=== PATIENT | female | born 1980 | race Caucasian/White ===

== ENCOUNTER 2021-08-02 10:47 | Outpatient (CLI) | payer OTHER, SELFPAY ==
--- NOTE | ~2021-08-02 | MM_ITS ---
EXAMINATION: MM screening sakina BI w ousmane HISTORY: Screening TECHNIQUE: Craniocaudal and mediolateral oblique 3-D tomosynthesis images were obtained and synthetic 2-D images were generated. CAD analysis was submitted and interpreted. COMPARISON: No prior mammogram is available for comparison at this institution. BREAST PARENCHYMAL COMPOSITION: There are scattered areas of fibroglandular density. FINDINGS: There is no evidence of suspicious mass, calcification, or architectural distortion to sugg est malignancy in either breast. There has been no suspicious interval change. IMPRESSION: 1. No mammographic evidence of malignancy. 2. Recommend routine screening mammography in one year. BI-RADS Category 1: Negative Reviewed, dictated and finalized at location A.
== END 2021-08-02 10:48 | disposition home or self-care (01) ==
LOC: CHSIMG 10:48
PROVIDERS: PCP Physician Assistant; Visit Provider Obstetrics & Gynecology
DX: Z12.31 Encounter for screening mammogram for malignant neoplasm of breast (principal)
CPT/HCPCS: 77063; 77067

== ENCOUNTER 2025-01-27 09:27 | Outpatient (CLI) | payer OTHER, SELFPAY ==
--- NOTE | ~2025-01-27 | MM_ITS ---
EXAMINATION: MM screening sakina BI w ousmane HISTORY: Screening mammogram TECHNIQUE: Craniocaudal and mediolateral oblique 3-D tomosynthesis images were obtained and synthetic 2-D images were generated. CAD analysis was submitted and interpreted. COMPARISON: 04/01/2021 BREAST PARENCHYMAL COMPOSITION:Not Dense. There are scattered areas of fibroglandular density. FINDINGS: No suspicious mass, calcification, or architectural distortion are identified in either marie ast to suggest malignancy. There has been no suspicious interval change. IMPRESSION: No mammographic evidence of malignancy. Recommend routine screening mammography in one year. BI-RADS Category 1: Negative Reviewed, dictated and finalized at location . [employer]
--- OUTSIDE RECORDS SUMMARY | 2025-01-27 10:23 | XMS_ITS ---
Care Plan - [facility] Created on: January 27, 2025 RONNIE RAIES L : 1980 Sex: Female Author Organization [facility] Address [address] [place] [address] Phone Care Team Providers Care Sfdc Consultant Name Role Phone Unavailable Unavailable Unavailable
--- OUTSIDE RECORDS SUMMARY | 2025-01-27 10:23 | XMS_ITS | Clinical Summary ---
Author Organization [facility] Address [address] [place] [address] Phone Care Team Providers Care Temple Meat Cutter Name Role Phone Unavailable Unavailable Unavailable Reason for Visit and Chief Complaint NO SHOW Problems Includes: Problems addressed during this encounter and other active Problems All Visits Onset Date Resolved Date Provider Condition S tatus Risk: Tobacco Use 07/02/2018 GIULIANO DE LA O NP -BC Active Last Documented On 8 10:48AM ; [facility] Plan of Treatment No Plan of Treatment Recorded Assessments Includes: Assessments from this encounter No Assessments Recorded Medical Equipment - Implanted Devices Includes: Current Devices No Medical Equipment Recorded Medications Includes: Medications discussed during this encounter and other current Medications Current Medications (continue as prescribed) Multiple Vitamins/Womens Oral Tablet 06/25/2017 Prov ider: Diagnosis: Last Documented On 7 11:24AM By CRUZ LEAHY ; [facility] PX Iron 200 (65 Fe) MG Tablet 06/08/2015 Provider: Diagnosis: Last Documented On 5 11:07AM By CRUZ LEAHY ; [facility] Medications Administered Includes: Administered Medications from this encounter No Administered Medications Recorded Results Includes: Results discussed during this encounter No Results Recorded For Specified Dates History of Present Illness Includes: History of Present Illness from this encounter No History of Present Illness Recorded Social History No Social History Recorded - Smoking Status Unknown Medical History Includes: Medical History addressed during this encounter No Medical History Recorded Family History Includes: Family History addressed during this encounter No Family History Recorded Review of Systems Includes: Review of Systems from this encounter No Review of Systems Recorded Mental Status Includes: Mental Status from this encounter No Mental Status Recorded Functional Status Includes: Functional Status from this encounter No Functional Status Recorded Physical Exam Includes: Physical Exam from this encounter No Physical Exam Recorded Allergies Includes: Active Allergies No Known Allergies Encounters Encounter Provider Location Date Check-In Time Check-Out Time Diagnosis NO SHOW MICHAELA MAC MD [facility] EMT 12/08/2018 10:53AM 11:59PM Clinical Notes Includes: Clinical Notes from this encounter No Clinical Notes Recorded
--- OUTSIDE RECORDS SUMMARY | 2025-01-27 10:23 | XMS_ITS | Clinical Summary ---
Author Organization [facility] Address [address] [place] [address] Phone Care Team Providers Care Rough Rib Grader Name Role Phone Unavailable Unavailable Unavailable Reason for Visit and Chief Complaint NO SHOW Problems Includes: Problems addressed during this encounter and other active Problems All Visits Onset Date Resolved Date Provider Condition S tatus Risk: Tobacco Use 07/02/2018 GIULIANO DE LA O NP -BC Active Last Documented On 8 10:48AM ; [facility] Plan of Treatment No Plan of Treatment Recorded Assessments Includes: Assessments from this encounter No Assessments Recorded Medical Equipment - Implanted Devices Includes: Current Devices No Medical Equipment Recorded Medications Includes: Medications discussed during this encounter and other current Medications Current Medications (continue as prescribed) Multiple Vitamins/Womens Oral Tablet 06/25/2017 Prov ider: Diagnosis: Last Documented On 7 11:24AM By CRUZ LEAHY ; [facility] PX Iron 200 (65 Fe) MG Tablet 06/08/2015 Provider: Diagnosis: Last Documented On 5 11:07AM By CRUZ LEAHY ; [facility] Medications Administered Includes: Administered Medications from this [...] Allergies Includes: Active Allergies No Known Allergies Clinical Notes Includes: Clinical Notes from this encounter No Clinical Notes Recorded
--- OUTSIDE RECORDS SUMMARY | 2025-01-27 10:24 | XMS_ITS | Clinical Summary ---
Author Organization [facility] Address [address] [place] [address] Phone Care Team Providers Care Wind Turbine Performance Engineer Name Role Phone Unavailable Unavailable Unavailable Reason for Visit and Chief Complaint PELVIC W/TVT Problems Includes: Problems addressed during this encounter and other active Problems All Visits Onset Date Resolved Date Provider Condition S tatus Risk: Tobacco Use 07/02/2018 GIULIANO DE LA O NP -BC Active Last Documented On 8 10:48AM ; [facility] Plan of Treatment No Plan of Treatment Recorded Assessments Includes: Assessments from this encounter No Assessments Recorded Medical Equipment - Implanted Devices Includes: Current Devices No Medical Equipment Recorded Medications Includes: Medications discussed during this encounter and other current Medications Current Medications (continue as prescribed) Multiple Vitamins/Womens Oral Tablet 06/25/2017 Prov ider: Diagnosis: Last Documented On 7 11:24AM By CRUZ LEAHY ; [facility] PX Iron 200 (65 Fe) MG Tablet 06/08/2015 Provider: Diagnosis: Last Documented On 5 11:07AM By CRUZ LEAHY ; [facility] Medications Administered Includes: Administered Medications from [...]
--- OUTSIDE RECORDS SUMMARY | 2025-01-27 10:24 | XMS_ITS | Data Portability ---
Author Organization [facility] Address [address] [place] [address] Care Team Providers Care Char House Supervisor Name Role Phone QUINTON FRIEDMAN Primary Care Provider Assessment No assessment recorded. Plan of Treatment Reminders Order Date Submit Date Provider Last Modified By Organization Details Last Modified Time Details Appointments ANY 15 2024 09:30A Danna Friedman PA-C Not available Not available Not available Lab cytolo gy report , thin prep, smear or scrapi ng, cervic al or vagina l 2024 025 [facility], [address], [address], [place], [address], 01/20/2025 17:20:06 CBC 2024 025 [facility], [address], [address], [place], [address], 12/26/2024 11:11:02 CMP, serum or plasma 2024 025 [facility], [address] [facility] [address], [address], [place], [address], 12/26/2024 11:11:00 lipid panel, serum 2024 025 [facility], [address] [facility] [address], [address], [place], [address], 12/26/2024 11:10:59 HbA1c (hemog lobin A1c), blood 2024 025 [facility] In-Office Order, Internal Use Only DO Not Attach Compendium DO Not Attach Compendium, Do Not Delete/merge, [id number] 12/25/2024 12:22:09 noninv asive colore ctal cancer DNA + occult blood screen ing, QL, stool 2024 025 [facility] [employer] (Cologuard Orders Only), [address], [address], [place], [address], 12/25/2024 11:43:12 CBC 2021 022 [facility], [address] [place] [address], [address], [place], [address], 04/24/2022 09:13:54 CMP, serum or plasma 2021 022 [facility], [address] [place] [address], [address], [place], [address], 04/24/2022 09:13:53 lipid panel, serum 2021 022 [facility], [address] [place] [address], [address], [place], [address], 04/24/2022 09:13:55 HbA1c (hemog lobin A1c), blood 2021 022 [facility] In-Office Order, Internal Use Only DO Not Attach Compendium DO Not Attach Compendium, Do Not Delete/merge, [id number] 04/23/2022 11:03:56 urinal ysis, dipsti ck 2018 019 [facility] Order, Internal Use Only DO Not Attach Compendium DO Not Attach Compendium, Do Not Delete/merge, [id number] 07/10/2019 13:44:13 Referral None record ed. Procedures None record ed. Surgeries None record ed. Imaging MAMMO, screen ing, bilate ral - screen ing mammog keila. Last mammog keila 08/02/20 21 2024 025 [facility], [address] [place], [address], 01/27/2025 11:01:31 Medication Orders Cipro 500 mg tablet 2018 019 [facility], [address] [place] [address], [address], 04/23/2022 10:30:52 Patient TargetsNo targets recorded. Patient Instructions Encounter Date Encounter Id Patient Instructions Last Modified By Organization Details Last Modified Time 07/10/2019 [id number] get AZO too jocelyn Not available 08/2019 11:05:18 01/18/2025 [id number] Quitting Tobacco : Care Instructions Not available 01/18/2025 11:49:41 Your women's health annual exam today was unremarkable. Continue to practice breast self awareness like we discussed. Come back to the office with any breast changes, nipple discharge, change to your menstrual cycle, or with complaints of unusual odorous discharge. Otherwise, come back in 1 year for your next well woman annual exam. Do NOT douche as it disturbs the natural balance of bacteria in the vagina and can cause infection. Avoid scented soaps or lotions. Use a basic unscented soap for only the outer skin around your vagina. Wear cotton underwear, avoid thongs, avoid spandex, leggings and wear panty liners daily. You can try probiotics. Use a condom with EVERY sexual encounter to minimize your risk for sexually transmitted infection and unplanned . Lubrication can help make penetrative intercourse more comfortable. There are 3 types of lube: Water-based (examples are KY jelly, Astroglide): inexpensive, can buy over the counter, often gets sticky and needs to be reapplied. Oil-based (examples olive oil, coconut oil): inexpensive, can stain sheets, do not use with condoms. Silicone-based (examples Uber Lube, Pjur): more expensive, a little goes a long way, does not have scents or stain sheets. 1. Start taking a multivitamin, calcium and vitamin D3 supplements daily to keep your bones healthy. 2. Exercise and keep a healthy diet to minimize risk for stroke, heart attack and osteoporosis. 3. Use a once a day vaginal moisturizer (like Replens) if you have bothersome dryness. If dryness continues to be a problem, make an appointment to see us to discuss other options. [email or web address] Not available 01/18/2025 11:50:00 Reason for Referral None Reported. Results Created Date Observation Date Name Description Value Unit Range Abnormal Flag Note LastModifiedBy Organization Detail LastModifiedTime 07/10/2007/10/2019 urina lysis , dipst ick Leukocytes Small Not Available In-Offi ce Order Internal Use Only DO Not Attach Compendium DO Not Attach Compendium, Do Not Delete/merge, [id number] 07/10/2019 10:45:18 07/10/2007/10/2019 urina lysis , dipst ick Nitrite negati ve Not Available In-Office Order Internal Use Only DO Not Attach Compendium DO Not Attach Compendium, Do Not Delete/merge, 07/10/2019 10:45:18 07/10/2007/10/2019 urina lysis , dipst ick Urobilinogen .2 Not Available In-Of fice Order Internal Use Only DO Not Attach Compendium DO Not Attach Compendium, Do Not Delete/merge, 07/10/2019 10:45:18 07/10/2007/10/2019 urina lysis , dipst ick Protein Negati ve Not Available In-Office Order Internal Use Only DO Not Attach Compendium DO Not Attach Compendium, Do Not Delete/merge, [id number] 07/10/2019 10:45:18 07/10/2007/10/2019 urina lysis , dipst ick pH 7.0 Not Available In-Office Order Internal Use Only DO Not Attach Compendium DO Not Attach Compendium, Do Not Delete/merge, 07/10/2019 10:45:18 07/10/2007/10/2019 urina lysis , dipst ick Blood Large Not Available In-Office Order Internal Use Only DO Not Attach Compendium DO Not Attach Compendium, Do Not Delete/merge, 07/10/2019 10:45:18 07/10/20 19 07/10/2019 urina lysis , dipst ick Specific [place] 1.005 Not Available In-Off ice Order Internal Use Only DO Not Attach Compendium DO Not Attach Compendium, Do Not Delete/merge, 07/10/2019 10:45:18 07/10/20 19 07/10/2019 urina lysis , dipst ick Ketone Negati ve Not Available In-Office Order Internal Use Only DO Not Attach Compendium DO Not Attach Compendium, Do Not Delete/merge, 07/10/2019 10:45:18 07/10/20 19 07/10/2019 urina lysis , dipst ick Bilirubin Negati ve Not Available In-Office Order Internal Use Only DO Not Attach Compendium DO Not Attach Compendium, Do Not Delete/merge, [id number] 07/10/2019 10:45:18 07/10/20 19 07/10/2019 urina lysis , dipst ick Glucose Negati ve Not Available In-Office Order Internal Use Only DO Not Attach Compendium DO Not Attach Compendium, Do Not Delete/merge, [id number] 07/10/2019 10:45:18 07/10/20 19 07/10/2019 urina lysis , dipst ick Appearance Clear Not Available In-Offi ce Order Internal Use Only DO Not Attach Compendium DO Not Attach Compendium, Do Not Delete/merge, [id number] 07/10/2019 10:45:18 07/10/20 19 07/10/2019 urina lysis , dipst ick Color Pale Yellow Not Available In-Office Order Internal Use Only DO Not Attach Compendium DO Not Attach Compendium, Do Not Delete/merge, [id number] 07/10/2019 10:45:18 04/23/20 22 04/24/2022 COMP. METAB OLIC PANEL (14) glucose 80 mg/dL 65-99 Not Available [facility] ([facility]) [address], [place], [address], 04/24/2022 09:13:53 04/23/20 22 04/24/2022 COMP. METAB OLIC PANEL (14) BUN 13 mg/dL 6-24 Not Available [facility] ([facility]) [address] [place], [address], 04/24/2022 09:13:53 04/23/20 22 04/24/2022 COMP. METAB OLIC PANEL (14) creatinine 0.70 mg/dL 0.57-1 .00 Not Available [facility] ([facility]) [address] [place], [address], 04/24/2022 09:13:53 04/23/20 22 04/24/2022 COMP. METAB OLIC PANEL (14) eGFR 111 mL/mi n/1.7 3 >59 Not Available [facility] ([facility]) [address] [place], [address], 04/24/2022 09:13:53 04/23/20 22 04/24/2022 COMP. METAB OLIC PANEL (14) BUN/creatini ne ratio 19 9-23 Not Available [facility] ([facility]) [address] [place], [address], 04/24/2022 09:13:53 04/23/20 22 04/24/2022 COMP. METAB OLIC PANEL (14) sodium 141 mmol/ L 134-14 4 Not Available [facility] ([facility]) [address] [place], [address], 04/24/2022 09:13:53 04/23/20 22 04/24/2022 COMP. METAB OLIC PANEL (14) potassium 4.5 mmol/ L 3.5-5. 2 Not Available [facility] ([facility]) [address] [place], [address], 04/24/2022 09:13:53 04/23/20 22 04/24/2022 COMP. METAB OLIC PANEL (14) chloride 105 mmol/ L 96-106 Not Available [facility] ([place] [facility]) [address] [place], [address], 04/24/2022 09:13:53 04/23/20 22 04/24/2022 COMP. METAB OLIC PANEL (14) carbon dioxide, total 21 mmol/ L 20- Not Available [facility] ([place] [facility]) [address], [place], [address], 04/24/2022 09:13:53 04/23/20 22 04/24/2022 COMP. METAB OLIC PANEL (14) calcium 9.8 mg/dL 8.7-10 .2 Not Available [facility] ([place] [facility]) [address], [place], [address], 04/24/2022 09:13:53 04/23/20 22 04/24/2022 COMP. METAB OLIC PANEL (14) protein, total 7.1 g/dL 6.0-8. 5 Not Available [facility] ([facility]) [address], [place], [address], 04/24/2022 09:13:53 04/23/20 22 04/24/2022 COMP. METAB OLIC PANEL (14) albumin 4.7 g/dL 3.8-4. 8 Not Available [facility] ([facility]) [address], [place], [address], 04/24/2022 09:13:53 04/23/20 22 04/24/2022 COMP. METAB OLIC PANEL (14) globulin, total 2.4 g/dL 1.5-4. 5 Not Available [facility] ([place] [facility]) [address] [place], [address], 04/24/2022 09:13:53 04/23/20 22 04/24/2022 COMP. METAB OLIC PANEL (14) A/G ratio 2.0 1.2-2. 2 Not Available [facility] ([place] [facility]) [address] [place], [address], 04/24/2022 09:13:53 04/23/20 22 04/24/2022 COMP. METAB OLIC PANEL (14) bilirubin, total 0.8 mg/dL 0.0-1. 2 Not Available [facility] ([facility]) [address], [place], [address], 04/24/2022 09:13:53 04/23/20 22 04/24/2022 COMP. METAB OLIC PANEL (14) alkaline phosphatase 53 IU/L 44-121 Not Available [facility] ([facility]) [address], [place], [address], 04/24/2022 09:13:53 04/23/20 22 04/24/2022 COMP. METAB OLIC PANEL (14) AST (SGOT) 14 IU/L 0-40 Not Available [facility] ([facility]) [address], [place], [address], 04/24/2022 09:13:53 04/23/20 22 04/24/2022 COMP. METAB OLIC PANEL (14) ALT (SGPT) 14 IU/L 0-32 Not Available [facility] ([facility]) [address], [place], [address], 04/24/2022 09:13:53 04/23/20 22 04/24/2022 CBC, PLATE LET, NO DIFFE RENTI AL WBC 9.8 x10e3 /uL 3.4-10 .8 Not Available [facility] ([facility]) [address] [place], [address], 04/24/2022 09:13:54 04/23/20 22 04/24/2022 CBC, PLATE LET, NO DIFFE RENTI AL RBC 4.94 x10e6 /uL 3.77-5 .28 Not Available [facility] ([facility]) [address], [place], [address], 04/24/2022 09:13:54 04/23/20 04/24/2022 CBC, PLATE LET, NO DIFFE RENTI AL hemoglobin 14.7 g/dL 11.1-1 5.9 Not Available [facility] ([facility]) [address] [place], [address], 04/24/2022 09:13:54 04/23/20 22 04/24/2022 CBC, PLATE LET, NO DIFFE RENTI AL hematocrit 45.4 % 34.0-4 6.6 Not Available [facility] ([facility]) [address] [place], [address], 04/24/2022 09:13:54 04/23/2004/24/2022 CBC, PLATE LET, NO DIFFE RENTI AL MCV 92 fL 79-97 Not Available [facility] ([facility]) [address] [place], [address], 04/24/2022 09:13:54 04/23/2004/24/2022 CBC, PLATE LET, NO DIFFE RENTI AL MCH 29.8 pg 26.6-3 3.0 Not Available [facility] ([facility]) [address] [place], [address], 04/24/2022 09:13:54 04/23/2004/24/2022 CBC, PLATE LET, NO DIFFE RENTI AL MCHC 32.4 g/dL 31.5-3 5.7 Not Available [facility] ([facility]) [address] [place], [address], 04/24/2022 09:13:54 04/23/2004/24/2022 CBC, PLATE LET, NO DIFFE RENTI AL RDW 12.6 % 11.7-1 5.4 Not Available [facility] ([facility]) [address] [place], [address], 04/24/2022 09:13:54 04/23/2004/24/2022 CBC, PLATE LET, NO DIFFE RENTI AL platelets 377 x10e3 /uL 150-45 0 Not Available [facility] ([facility]) [address], [place], [address], 04/24/2022 09:13:54 04/23/20 22 04/24/2022 CBC, PLATE LET, NO DIFFE RENTI AL NRBC FOOD OR BAGGAGE HANDLING RAMPMAN Not Available [facility] ([facility]) [address], [place], [address], 04/24/2022 09:13:54 04/23/20 22 04/24/2022 LIPID PANEL cholesterol, total 184 mg/dL 100-19 9 Not Available [facility] ([facility]) [address] [place], [address], 04/24/2022 09:13:55 04/23/20 22 04/24/2022 LIPID PANEL triglyceride s 95 mg/dL 0-149 Not Available [facility] ([facility]) [address] [place], [address], 04/24/2022 09:13:55 04/23/20 22 04/24/2022 LIPID PANEL HDL cholesterol 44 mg/dL >39 Not Available [facility] ([facility]) [address] [place], [address], 04/24/2022 09:13:55 04/23/20 22 04/24/2022 LIPID PANEL VLDL cholesterol robert 17 mg/dL 5-40 Not Available [facility] ([facility]) [address] [place], [address], 04/24/2022 09:13:55 04/23/20 22 04/24/2022 LIPID PANEL LDL chol calc ([facility]) 123 mg/dL 0-99 above high normal Not Available [facility] ([facility]) [address] [place], [address], 04/24/2022 09:13:55 05/23/04/24/2022 LIPID PANEL comment: FOOD OR BAGGAGE HANDLING RAMPMAN Not Available [facility] ([facility]) [address], [place], [address], 04/24/2022 09:13:55 04/23/20 22 04/24/2022 CARDI OVASC ULAR REPOR T interpretati on Note Suppl ement al repor t is avail able. Not Available [facility] ([facility]) [address], [place], [address], 04/24/2022 09:13:56 04/23/20 22 04/24/2022 CARDI OVASC ULAR REPOR T pdf . Not Available [facility] ([facility]) [address], [place], [address], 04/24/2022 09:13:56 04/23/20 22 04/23/2022 HbA1c (hemo globi n A1c), blood HbA1c 5.4 Not Available In-Office Order Internal Use Only DO Not Attach Compendium DO Not Attach Compendium, Do Not Delete/merge, [id number] 04/23/2022 10:47:57 12/25/19 25 12/26/2024 LIPID PANEL cholesterol, total 194 mg/dL 100-19 9 Not Available [facility] [address] [place], [address], 12/26/2024 11:10:59 12/25/19 25 12/26/2024 LIPID PANEL triglyceride s 88 mg/dL 0-149 Not Available [facility] [address] [place], [address], 12/26/2024 11:10:59 12/25/19 25 12/26/2024 LIPID PANEL HDL cholesterol 43 mg/dL >39 Not Available [facility] [address] [place], [address], 12/26/2024 11:10:59 12/25/19 25 12/26/2024 LIPID PANEL VLDL cholesterol robert 16 mg/dL 5-40 Not Available [address], [address], 12/26/2024 11:10:59 12/25/19 25 12/26/2024 LIPID PANEL LDL chol calc ([facility]) 135 mg/dL 0-99 above high normal Not Available [address], [address], 12/26/2024 11:10:59 12/25/19 25 12/26/2024 COMP. METAB OLIC PANEL (14) glucose 95 mg/dL 70-99 Not Available [address], [address], 12/26/2024 11:11:00 12/25/19 25 12/26/2024 COMP. METAB OLIC PANEL (14) BUN 13 mg/dL 6-24 Not Available [address], [address], 12/26/2024 11:11:00 12/25/1912/26/2024 COMP. METAB OLIC PANEL (14) creatinine 0.79 mg/dL 0.57-1 .00 Not Available [address], [address], 12/26/2024 11:11:00 12/25/19 25 12/26/2024 COMP. METAB OLIC PANEL (14) eGFR 94 mL/mi n/1.7 3 >59 Not Available [address], [address], 12/26/2024 11:11:00 12/25/1912/26/2024 COMP. METAB OLIC PANEL (14) BUN/creatini ne ratio 16 9-23 Not Available [address], [address], 12/26/2024 11:11:00 12/25/1912/26/2024 COMP. METAB OLIC PANEL (14) sodium 141 mmol/ L 134-14 4 Not Available [address], [address], 12/26/2024 11:11:00 12/25/19 25 12/26/2024 COMP. METAB OLIC PANEL (14) potassium 4.5 mmol/ L 3.5-5. 2 Not Available [address], [address], 12/26/2024 11:11:00 12/25/1912/26/2024 COMP. METAB OLIC PANEL (14) chloride 105 mmol/ L 96-106 Not Available [address], [address], 12/26/2024 11:11:00 12/25/1912/26/2024 COMP. METAB OLIC PANEL (14) carbon dioxide, total 22 mmol/ L 20-29 Not Available [address], [address], 12/26/2024 11:11:00 12/25/19 25 12/26/2024 COMP. METAB OLIC PANEL (14) calcium 10.0 mg/dL 8.7-10 .2 Not Available [address], [address], 12/26/2024 11:11:00 12/25/1912/26/2024 COMP. METAB OLIC PANEL (14) protein, total 7.0 g/dL 6.0-8. 5 Not Available [address], [address], 12/26/2024 11:11:00 12/25/19 25 12/26/2024 COMP. METAB OLIC PANEL (14) albumin 4.7 g/dL 3.9-4. 9 Not Available [address], [address], 12/26/2024 11:11:00 12/25/1912/26/2024 COMP. METAB OLIC PANEL (14) globulin, total 2.3 g/dL 1.5-4. 5 Not Available [address], [address], 12/26/2024 11:11:00 12/25/19 25 12/26/2024 COMP. METAB OLIC PANEL (14) bilirubin, total 0.5 mg/dL 0.0-1. 2 Not Available [address], [address], 12/26/2024 11:11:00 12/25/19 25 12/26/2024 COMP. METAB OLIC PANEL (14) alkaline phosphatase 58 IU/L 44-121 Not Available [address], [address], 12/26/2024 11:11:00 12/25/19 25 12/26/2024 COMP. METAB OLIC PANEL (14) AST (SGOT) 14 IU/L 0-40 Not Available [address], [address], 12/26/2024 11:11:00 12/25/19 25 12/26/2024 COMP. METAB OLIC PANEL (14) ALT (SGPT) 17 IU/L 0-32 Not Available [address], [address], 12/26/2024 11:11:00 12/25/19 25 12/26/2024 CARDI SANCHO DAWSON REPOR T interpretati on Note Suppl jagdeep gonzalez is avail able. Not Available [address], [address], 12/26/2024 11:11:01 12/25/1912/26/2024 CARDI OVAONI Gar pdf . Not Available [address], [address], 12/26/2024 11:11:01 12/25/1912/26/2024 CBC, PLATE LET, NO DIFFE RENTI AL WBC 8.9 x10e3 /uL 3.4-10 .8 Not Available [address], [address], 12/26/2024 11:11:02 12/25/1912/26/2024 CBC, PLATE LET, NO DIFFE RENTI AL RBC 4.90 x10e6 /uL 3.77-5 .28 Not Available [address], [address], 12/26/2024 11:11:02 12/25/1912/26/2024 CBC, PLATE LET, NO DIFFE RENTI AL hemoglobin 14.8 g/dL 11.1-1 5.9 Not Available [address], [address], 12/26/2024 11:11:02 12/25/1912/26/2024 CBC, PLATE LET, NO DIFFE RENTI AL hematocrit 44.8 % 34.0-4 6.6 Not Available [address], [address], 12/26/2024 11:11:02 12/25/1912/26/2024 CBC, PLATE LET, NO DIFFE RENTI AL MCV 91 fL 79-97 Not Available [address], [address], 12/26/2024 11:11:02 12/25/1912/26/2024 CBC, PLATE LET, NO DIFFE RENTI AL MCH 30.2 pg 26.6-3 3.0 Not Available [address], [address], 12/26/2024 11:11:02 12/25/19 25 12/26/2024 CBC, PLATE LET, NO DIFFE RENTI AL MCHC 33.0 g/dL 31.5-3 5.7 Not Available [address], [address], 12/26/2024 11:11:02 12/25/19 25 12/26/2024 CBC, PLATE LET, NO DIFFE RENTI AL RDW 12.4 % 11.7-1 5.4 Not Available [address], [address], 12/26/2024 11:11:02 12/25/19 25 12/26/2024 CBC, PLATE LET, NO DIFFE RENTI AL platelets 376 x10e3 /uL 150-45 0 Not Available [address], [address], 12/26/2024 11:11:02 12/25/19 25 12/25/2024 HbA1c (hemo globi n A1c), blood HbA1c 5.8 Not Available In-Office Order Internal Use Only DO Not Attach Compendium DO Not Attach Compendium, Do Not Delete/merge, [id number] 12/25/2024 11:42:23 01/18/2001/20/2025 IGP, APTIM A HPV, RFX 16/18 ,45 diagnosis: COMMEN T NEGAT BRUNILDA FOR INTRA EPITH ELIAL JUANCARLOS Gonzales OR YURI ROSA . Not Available [facility] ([facility]) [address], [place], [address], 01/20/2025 17:20:06 01/18/20 25 01/20/2025 IGP, APTIM A HPV, RFX 16/18 ,45 specimen adequacy: COMMEN T Satis facto ry for evalu ation . Endoc ervic al and/o r squam ous metap lasti c cells (endo cervi robert compo nent) are prese nt. Not Available [facility] ([facility]) [address] [place], [address], 01/20/2025 17:20:06 01/18/20 25 01/20/2025 IGP, APTIM A HPV, RFX 16/18 ,45 clinician provided ICD10: KYLE Gar Z01.4 19 Not Available [facility] ([facility]) [address] [place], [address], 01/20/2025 17:20:06 01/18/20 25 01/20/2025 IGP, APTIM A HPV, RFX 16/18 ,45 performed by: KYLE grant, Cytot jimmy gar (ASCP ) Not Available [facility] ([facility]) [address] [place], [address], 01/20/2025 17:20:06 01/18/20 25 01/20/2025 IGP, APTIM A HPV, RFX 16/18 ,45 . . Not Available [facility] ([facility]) [address] [place], [address], 01/20/2025 17:20:06 01/18/20 25 01/20/2025 IGP, APTIM A HPV, RFX 16/18 ,45 note: KYLE Gar The Pap smear is a scree trent test desig kenneth to aid in the detec tion of nell ligna nt and malig nant condi tions of the uteri ne cervi x. It is not a diagn ostic proce dure and shoul d not be used as the sole means of detec ting cervi robert cance r. Both false -posi tive and false -nega tive repor ts do occur . Not Available [facility] ([facility]) [address] [place], [address], 01/20/2025 17:20:06 01/18/20 25 01/20/2025 IGP, APTIM A HPV, RFX 16/18 ,45 test methodology: COMMEN T This liqui d based ThinP rep(R ) pap test was eliana cooper with the use of an image guide micaela thomson Not Available [facility] ([facility]) [address], [place], [address], 01/20/2025 17:20:06 01/18/20 25 01/20/2025 IGP, APTIM A HPV, RFX 16/18 ,45 HPV aptima NEGATI VE negati ve This nucle ic acid ampli ficat ion test detec ts fourt een high- risk HPV types (16,1 8,31, 33,35 ,39,4 5,51, 52,56 ,58,5 9,66, 68) witho ut diffe renti ation . Not Available [facility] ([facility]) [address], [place], [address], 01/20/2025 17:20:06 01/18/20 25 01/20/2025 IGP, APTIM A HPV, RFX 16/18 ,45 HPV genotype reflex COMMEN T Crite archie not met, HPV Genot ype not perfo rmed. Not Available [facility] ([facility]) [address], [place], [address], 01/20/2025 17:20:06 08/02/20 21 08/02/2021 MAMMO , scree trent, digit al, bilat eral No observ ation [facility] ed[facility] [address] [place], [address], 08/02/2021 14:08:31 01/27/20 25 01/27/2025 MAMMO , scree trent, bilat eral No observ ation record ed. [email or web address] [address] [place], [address], 01/27/2025 11:06:45 Result Notes None recorded. Problems No Known Problems Procedures Surgical History Date Name Laterality Status Provider Name and Address Organization Details Recorded Time 5 Date of Last Pap Smear completed JAMES GALLARDO NP Attn: Accounting,[address] [place], [address], [facility] 01/18/2025 16:25:15 1 Date of Last Mammogram completed Kanwal Younger [place] 12/25/2024 11:22:53 1 Most Recent Mammogram completed JAMES GALLARDO NP Attn: Accounting,[address] [facility], [place], [address], [facility] - [facility] 01/18/2025 16:26:11 section completed Samantha Wagoner MA [facility] 06/03/2019 10:12:50 Imaging Results Imaging Date Name Status LastModified by Organiz ation Details LastModified Time 08/02/2021 [facility] [address] [place], [address], 08/02/2021 14:08:31 01/27/2025 MAMMO, screening, bilateral active [email or web address] [facility] [address] [place], [address], 01/27/2025 11:06:45 Procedure Notes None recorded. Medical Equipment None Reported. Allergies No known drug allergies Medications Name Sig Start Date Stop Date Status Note LastModified by Organization Details LastModified Time atorvastati n 20 mg tablet TAKE 1 TABLET BY MOUTH EVERY DAY active Not Available Not Available No t Available prednisone 20 mg tablet Take 3 tablets every day by oral route for 5 days. 04/23 completed Not Available Not Available Not Available metronidazo le 500 mg tablet 04/23 completed Not Available Not Available Not Available Depo-Medrol 80 mg/mL suspension for injection Take 1 mL by injection route. 07/10 completed Not Available Not Available Not Available Cipro 500 mg tablet Take 1 tablet every 12 hours by oral route for 10 days. 04/23 completed Not Available Not Available Not Available polymyxin B sulfate 10,000 unit-trimet hoprim 1 mg/mL eye drops INSTILL 1 DROP INTO AFFECTED EYE(S) BY OPHTHALMI C ROUTE EVERY 6 HOURS 12/25 completed Not Available Not Available Not Available Denta 5000 Plus 1.1 % cream 04/23 completed Not Available Not Available Not Available tranexamic acid 650 mg tablet 04/23 completed Not Available Not Available Not Available Vitals Date Recorded Body height Body mass index (BMI) Body weight Oxygen saturation Oxygen saturation in Arterial blood by Pulse oximetry Heart rate Systolic blood pressure Diastolic blood pressure Provider Name and Address Organization Details Last Updated DateTime 9 162.56 cm 24.4 kg/m2 54327.1 2 g 98 % 98 % 71 /min 120 mm[Hg] 82 mm[Hg] Samantha Wagoner MA [facility] 9 10:43:12 Date Recorded Body weight Oxygen saturation Oxygen saturation in Arterial blood by Pulse oximetry Body temperature Heart rate Systolic blood pressure Diastolic blood pressure Provider Name and Address Organization Details Last Updated DateTime 2 75439.0 8 g 99 % 99 % 97.6 [degF] 75 /min 126 mm[Hg] 84 mm[Hg] Katalina coronel MA [facility] 2 10:30:12 Date Recorded Body height Body mass index (BMI) Provider Name and Address Organization Details Last Updated DateTime 04/23/2022 160.02 cm 26 kg/m2 Quinton Friedman PA-C Attn: [address] [place], [address], [facility] 04/23/2022 10:45:22 Date Recorded Body weight Body mass index (BMI) Body height Oxygen saturation Oxygen saturation in Arterial blood by Pulse oximetry Heart rate Systolic blood pressure Diastolic blood pressure Provider Name and Address Organization Details Last Updated DateTime 5 45713.0 8 g 25.2 kg/m2 162.56 cm 98 % 98 % 81 /min 120 mm[Hg] 78 mm[Hg] Kanwal Younger MA [facility] 5 11:26:00 Date Recorded Body height Body mass index (BMI) Body weight Respiratory rate Heart rate Systolic blood pressure Diastolic blood pressure Provider Name and Address Organization Details Last Updated DateTime 5 162.56 cm 25.2 kg/m2 46260.0 8 g 16 /min 72 /min 118 mm[Hg] 80 mm[Hg] Camila Villalobos MA [facility] 5 11:31:14 Date Recorded Body height Body mass index (BMI) Body weight Oxygen saturation Oxygen saturation in Arterial blood by Pulse oximetry Heart rate Respiratory rate Systolic blood pressure Diastolic blood pressure Provider Name and Address Organization Details Last Updated DateTime 5 162.56 cm 25.2 kg/m2 41844.3 6 g 98 % 98 % 78 /min 16 /min 118 mm[Hg] 76 mm[Hg] Camila Villalobos MA [facility] 5 10:41:20 Social History Question Answer Notes LastModified by Organizat ion Details LastModified Time Tobacco Smoking Status Current Every Day Smoker Samantha Wagoner MA [facility], [facility] 06/03/2019 10:12:22 What Is Your Level Of Alcohol Consumption? None Information not available 12/25/2024 What Is Your Level Of Caffeine Consumption? Moderate Information not available 12/25/2024 In The 14 Days Before Symptom Onset, Have You Had Close Contact With A Laboratory-confi rmed COVID-19 While That Case Was Ill? No Information not available 04/23/2022 In The 14 Days Before Symptom Onset, Have You Had Close Contact With A Person Who Is Under Investigation For COVID-19 While That Person Was Ill? No Information not available 04/23/2022 Have You Been To An Area Known To Be High Risk For COVID-19? No Information not available 04/23/2022 Are You Currently Employed? No Information not available 12/25/2024 What Type Of Diet Are You Following? REGULAR Information not available 04/23/2022 What Was The Date Of Your Most Recent Tobacco Screening? 01/19/2025 Information not available 01/19/2025 What Is Your Relationship Status? Information not available 12/25/2024 How Much Tobacco Do You Smoke? 1 PPD Information not available 06/03/2019 Do You Feel Stressed (tense, Restless, Nervous, Or Anxious, Or Unable To Sleep At Night)? [id number] Information not available 04/23/2022 Do You Use Any Illicit Or Recreational Drugs? Yes Marjuana Occ Information not available 12/25/2024 Has Tobacco Cessation Counseling Been Provided? Yes Information not available 06/03/2019 On What Date Was Tobacco Cessation Counseling Provided? 01/19/2025 Information not available 01/19/2025 How Many Years Have You Smoked Tobacco? 15 Information not available 06/03/2019 Do You Or Have You Ever Used Any Other Forms Of Tobacco Or Nicotine? No Information not available 12/25/2024 Sex: Female Functional Status None recorded. Mental Status None recorded. Family History Relationship Description Onset Age of this Age Resolved Age Notes LastModified by Organization Details LastModified Time Father Diabetes mellitus Not available 01/2019 10:11:58 Brother Multiple sclerosis Not available 01/2019 10:12:09 Maternal Grandmother Family history of breast cancer [id number] Not available 01/18 16:26:46 Medical History Condition Response Coronary Artery Disease N Other N Atrial Fibrillation N High Blood Pressure N Thyroid Problems N Kidney or Bladder Problems N Depression N COPD N Blood Clots N GI Problems N Skin Problems N Anemia N Heart Attack ([place]) N Diabetes N Anxiety Disorder N Muscle, Joint, or Bone Problems N Seizures/Epilepsy N Acid Reflux (GERD) N Cancer N Stroke N Allergies N Asthma N High Cholesterol N Hepatitis N Liver Disease N Headaches N Osteoporosis N Heart Failure N Gynecological History Statement/Question Response Date of Last Mammogram 08/02/2021 Flow Heavy Date of LMP 01/12/2025 On BCP's at Conception? N STIs/STDs N Duration of Flow (days) 5 Most Recent Mammogram 08/02/2021 Age at Menarche 9 Current Control Method Tubal Ligat ion Frequency of Cycle (Q days) 44 Sexually Active? Y Menses Monthly N Date of Last Pap Smear 01/18/2025 Sexual Problems? N LMP Approximate Desired Control Method Sterilizati on Obstetrics History GPAL:G 2 P 2 0 0 2 Type Value Full Term 2 Living 2 Total 2 Immunizations Vaccine Type Date Status Note Provider Eduardo parrish and Address Organization Details Recorded Time COVID-19, mRNA, LNP-S, PF, 100 mcg/0.5mL dose or 50 mcg/0.25mL dose 03/14/2021 completed ANA PAULA [place], [place] - [facility] 04/23/2022 10:31:35 COVID-19, mRNA, LNP-S, PF, 100 mcg/0.5mL dose or 50 mcg/0.25mL dose 04/11/2021 completed Katalina Madden MA null, [place] - [facility] 04/23/2022 10:31:54 COVID-19, mRNA, LNP-S, PF, 100 mcg/0.5mL dose or 50 mcg/0.25mL dose 11/29/2021 completed JAMES GALLARDO NP Attn: [address] [place], [place], [address] [place] [address], [place] - [facility] 01/18/2025 11:28:45 COVID-19, mRNA, LNP-S, bivalent, PF, 30 mcg/0.3 mL dose 10/01/2022 completed JAMES GALLARDO NP Attn: [address] [place], [address], [place] [facility] 01/18/2025 11:28:45 Tdap 12/19/2015 completed JAMES GALLARDO NP Attn: [address] [place], [address], [place] [facility] 01/18/2025 11:28:45 Influenza, split virus, quadrivalent, PF 10/01/2022 completed JAMES GALLARDO NP Attn: [address] [place], [address], [place] [facility] 01/18/2025 11:28:45 Past Encounters Encounter ID Performer Location Encounter Start Date Encounter Closed Date Diagnosis/Indication Diagnosis SNOMED-CT Code Diagnosis ICD10 Code Diagnosis Note [id number] Quinton Friedman PA-C [facility] [address] [place] [address] 06/03/2019 09:59:00 06/03/2019 12:44:56 Contact dermatitis caused by urushiol from [facility] mary 144195137 L25.5 Family his tory of diabetes mellitus 275601829 Z83.3 [id number] Quinton Friedman PA-C [facility] [address] [place] [address] 07/10/2019 10:31:04 07/10/2019 11:26:06 Dysuria 39707850 R30.0 [id number] Quinton Friedman PA-C [facility] [address] [place] [address] 04/23/2022 10:19:20 04/23/2022 10:59:55 Adult health examination 445503568 Z00.00 [id number] Kanwal Younger MA [facility] [address] [place] [address] 12/25/2024 11:11:52 12/28/2024 15:11:23 Family history of diabetes mellitus in first degree relative 237774302 Z83.3 Family his tory of cancer of colon 377235358 Z80.0 Body mass index 20-24 - normal 996243711 Z68.24 Screening for malignant neoplasm of colon 430427252 Z12.11 [id number] JAMES GALLARDO NP [facility] [address] [place] [address] 01/18/2025 10:47:28 01/19/2025 17:25:32 Gynecologic examination 55880654 Z01.419 Title Insurance Examiner exam completedB reast and thyroid WNLDenies any family history of ovarian, pancreatic , endometria l cancer. MGM has breast cancer. 1. Pap+ HPV cotesting done; pt has no pap history2. STI screening {{complete d declined *}}.3. Pt is using {{condoms HEATHER patch ring proge stion only pill DMPA Nexplanon IUD BTL*}} for control.4. Discussed breast self awareness5 . Mammogram ordered per ACOG guidelines 6. Educated on STI reduction and prevention . Encouraged condom use.7. 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 Screening mammography 24 931820 Z12.31 screening mammogram. Last mammogram 08/02/2021 Smoker 14515193 F17.982 [id number] Quinton Friedman PA-C [facility] [address] [facility] [place] [address] 01/19/2025 10:35:31 01/25/2025 09:08:36 Adult health examination 953486427 Z00.00 Mixed hyperlipidemia 267 752403 E78.2 Body mass index 20-24 - normal 673968364 Z68.24 Health Concerns Section Related Observation LastModified by Organization Detai ls LastModified Time None Recorded Concern Status LastModified by Organization Details LastModified Time None Recorded Advance Directives Directive None Recorded Payers Encounter Date Sequence Insurance Name Policy Number Policy Ham Covered Member ID Ham Member ID Guarantor Name 07/10/2019 1 [employer] - ALLIED BENEFITS - OPEN ACCESS [id number] Hu Perkins [id number] Bree Perkins 04/23/2022 1 UMR [id number] Hu Perkins [id number] Bree Perkins 12/25/2024 1 UMR [id number] Hu Perkins [id number] Bree Perkins 01/18/2025 1 UMR [id number] Hu Perkins [id number] Bree Perkins 01/19/2025 1 UMR [id number] Hu Perkins [id number] Bree Perkins Notes Date Note Type Note Provider Name and Address Organization Details Recorded Time 07/10/2019 text/html dysuria blood discomfort..began yesterday and bloomed this morning. Quinton Friedman PA-C Attn: [address] [facility], [place], [address], [facility] 07/10/2019 11:07:52 04/23/2022 text/html needs a check up ...does get poison mary...family hx of diabetes and thyroid issues... Quinton Friedman PA-C Attn: [address] [facility], [place], [address], [facility] 04/23/2022 10:49:54 12/25/2024 text/html 44 years old and wants a check up...fm hx of diabetes...fm hx of colon cancer Kanwal YoungerANA PAULA [facility], [place] - [facility] 12/25/2024 12:22:43 01/18/2025 text/html Bree Perkins a [age] yo with HX of hypercholesteremia presenting for annual health education specialist exam. Reports {{irregular* regular}} menstrual cycles with 5-7 days of {{light moderate* heavy }} flow using 8-10 pads/tampon on their heaviest day. Menses come about every 40-45 days. Does have some mood changes with cycles but able to manage at this time without any medication. 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 Denies any breast changes/pain, fatigue/cold intolerance/hair loss/dry skin. Denies dyspareunia, pelvic pressure or bowel movement changes.Denies SOB/chest pain/dizziness. Denies any fever or chills. Denies any family history of ovarian, endometrial or pancreatic cancer. MGM has breast cancer. LMP: 01/12/2025Last pap smear: unknownPap due: TodayLast Mammogram: 08/02/2021ast Cologuard: already ordered by PCP.Patient is currently sexually active with 1 male partner and has had 1 male partner in the past 15 years.Current contraception is {{condoms HEATHER patch rin g progestion only pill DMPA Nexplanon IUD BTL*}}Patient is {{happy* unhappy}} with method{{Desires Decline s*}} STI testing today. JAMES GALLARDO NP Attn: [address] [facility], [place], [address], [facility] 01/18/2025 16:32:59 01/19/2025 text/html work physical ne w meds seem good..has changed diet...things are well Quinton Friedman PA-C Attn: Accounting[address] [facility], [place], [address], [facility] 01/19/2025 11:05:52 OBGyn Episode No OBEpisode recorded.
--- OUTSIDE RECORDS SUMMARY | 2025-01-27 10:24 | XMS_ITS | Clinical Summary ---
Author Organization [facility] Address [address] [place] [address] Phone Care Team Providers Care Research Assistant Member Name Role Phone Unavailable Unavailable Unavailable Reason for Visit and Chief Complaint 3 MONTH CHECK Problems Includes: Problems addressed during this encounter and other active Problems All Visits Onset Date Resolved Date Provider Condition S tatus Risk: Tobacco Use 07/02/2018 GIULIANO DE LA O NP -BC Active Last Documented On 8 10:48AM ; [facility] Plan of Treatment No Plan [...] On 7 11:24AM By CRUZ LEAHY ; [facility] PX Iron 200 (65 Fe) MG Tablet 06/08/2015 Provider: Diagnosis: Last Documented On 5 11:07AM By CRUZ LEAHY ; [facility] Medications Administered Includes: Administered Medications from this [...]
--- OUTSIDE RECORDS SUMMARY | 2025-01-27 10:24 | XMS_ITS | Clinical Summary ---
Author Organization [facility] Address [address] [place] [address] Phone Care Team Providers Care Log Turner Name Role Phone Unavailable Unavailable Unavailable Reason for Visit and Chief Complaint NO SHOW Problems Includes: Problems addressed during this encounter and other active Problems All Visits Onset Date Resolved Date Provider Condition S tatus Risk: Tobacco Use 07/02/2018 GIULIANO DE LA O NP -BC Active Last Documented On 8 10:48AM ; [facility] Plan of Treatment No Plan [...] On 7 11:24AM By CRUZ LEAHY ; [facility] PX Iron 200 (65 Fe) MG Tablet 06/08/2015 Provider: Diagnosis: Last Documented On 5 11:07AM By CRUZ LEAHY ; [facility] Medications Administered Includes: Administered Medications [...]
--- OUTSIDE RECORDS SUMMARY | 2025-01-27 10:24 | XMS_ITS ---
Author Organization [facility] Address [address] [place] [address] Phone Care Team Providers Care Program Scheduler Name Role Phone Unavailable Unavailable Unavailable Problems Includes: Active, inactive, and resolved Problems All Visits Onset Date Resolved Date Provider Condition S tatus Risk: Tobacco Use 07/02/2018 GIULIANO RENDON -BC Active Last Documented On 8 10:48AM ; [facility] Age 35+ During 07/07/2015 Unknown ROSY THOMASON MD Resolved Last Documented On 01/31/2016 4:56PM ; [facility] Note: was Closed. Tobacco Use 07/07/2015 Unknown ROSY REYNA MD Resolve d Last Documented On 01/31/2016 4:56PM ; [facility] Note: was Closed. Smoking During 07/07/2015 Unknown ROSY THOMASON MD Resolved Last Documented On 01/31/2016 4:56PM ; [facility] Note: was Closed. Maternal Tobacco Use Complicating Preg / / Puerperium 06/08/2015 Unknown GIULIANO BRENNANNP-BC Resolved Last Documented On 8 10:48AM ; [facility] Peripartum History Delivery By Section 06/08/2015 GIULIANO RENDON-BC Inactive Last Documented On 07/23/2018 2:24PM ; [facility] Note: 11/18/2012 - Dr. Reyna - breech p resentation Complications: Anemia 06/08/2015 Unknown GIULIANO BRENNANNP-BC Resolved Last Documented On 8 10:48AM ; [facility] Elderly Multigravida - Antep artum Condition Or Complication 06/08/2015 Unknown GIULIANO DE LA O WHNP-BC Resolved Last Documented On 8 10:48AM ; [facility] Alcohol Use 06/02/2012 Unknown ROSY REYNA MD Resolve d Last Documented On 01/26/2013 9:41AM ; [facility] Note: was Closed. History of Metabolic Disorders 06/02/2012 Unknown ROSY REYNA MD Resolved Last Documented On 01/26/2013 9:41AM ; [facility] Note: was Closed. Tobacco Use 06/02/2012 Unknown ROSY REYNA MD Resolve d Last Documented On 01/26/2013 9:41AM ; [facility] Note: was Closed. Smoking During 06/02/2012 Unknown ROSY THOMASON MD Resolved Last Documented On 01/26/2013 9:41AM ; [facility] Note: was Closed. Plan of Treatment Findings Encounter Date Recheck pelvic u/s in 6 week s for resolution of ovarian cyst ENDOMETRIAL BIOPSY with GIULIANO DE LA O WHNP-BC 07/23/2018 Last Documented On 8 2:35PM ; [facility] Ordered Clinical summary pro vided to patient ENDOMETRIAL BIOPSY with GIULIANO DE LA O WHNP-BC 07/23/2018 Last Documented On 8 2:35PM ; [facility] Ordered a transvaginal ultrasound STUDENT TRUCK DRIVER EXAM with GIULIANO DE LA O WHNP-BC 07/02/2018 Last Documented On 8 11:06AM ; [facility] Ordered Clinical summary pro vided to patient STUDENT TRUCK DRIVER EXAM with GIULIANO DE LA O WHNP-BC 07/02/2018 Last Documented On 8 11:06AM ; [facility] Ordered endometrial biopsy STUDENT TRUCK DRIVER EXAM with GIULIANO DE LA O WHNP-BC 07/02/2018 Last Documented On 8 11:06AM ; [facility] Ordered Clinical summary pro vided to patient RETURN OB EXAM with GIULIANO DE LA O WHNP-BC 12/08/2015 Last Documented On 6 3:12PM ; [facility] Ordered Clinical summary pro vided to patient RETURN OB EXAM with GIULIANO DE LA O WHNP-BC 11/18/2015 Last Documented On 5 9:13AM ; [facility] Ordered Clinical summary pro vided to patient RETURN OB EXAM with GIULIANO DE LA O NP-BC 10/20/2015 Last Documented On 5 9:15AM ; [facility] Ordered Clinical summary pro vided to patient RETURN OB EXAM with GIULIANO DE LA O WHNP-BC 08/04/2015 Last Documented On 5 2:48PM ; [facility] Ordered Clinical summary pro vided to patient MISSED MENSES with GIULIANO DE LA O NP-BC 06/08/2015 Last Documented On 5 11:29AM ; [facility] Ordered Clinical summary pro vided to patient RECHECK with GIULIANO DE LA O NP-BC 05/20/2013 Last Documented On 3 3:15PM ; [facility] Ordered Clinical summary pro vided to patient 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 TRUCK DRIVER EXAM with GIULIANO DE LA O NP-BC 05/06/2013 Last Documented On 3 2:49PM ; [facility] Ordered Clinical summary pro vided to patient RETURN OB EXAM with GIULIANO DE LA O NP-BC 10/13/2012 Last Documented On 2 9:07AM ; [facility] Ordered Clinical summary pro vided to patient RETURN OB EXAM with GIULIANO DE LA O NP-BC 09/17/2012 Last Documented On 2 7:38AM ; [facility] Ordered Clinical summary pro vided to patient RETURN OB EXAM with ROSY REYNA MD 09/02/2012 Last Documented On 2 4:41PM ; [facility] Instructions to patient Instructions for patient : p atient is to keep a menstrual diary to help with further evaluation and treatment Last Documented On 8 2:16PM ; [facility] Instructions for patient : B reast Self Exam discussed Last Documented On 8 10:46AM ; [facility] Instructions for patient ER if dizzy, vomiting or light-headed due to heavy bleeding Last Documented On 8 10:56AM ; [facility] Instructions for patient : p atient is to keep a menstrual diary to help with further evaluation and treatment Last Documented On 8 10:56AM ; [facility] Instructions for patient RTO after U/S - follow up and plan of care Last Documented On 8 10:56AM ; [facility] Instructions for patient ER if bleeding through reg. sized pad/tampon < 1 hour Last Documented On 8 10:56AM ; [facility] Instructions for patient : B reast Self Exam discussed Last Documented On 7 11:26AM ; [facility] Instructions for patient : B reast Self Exam discussed Last Documented On 6 3:39PM ; [facility] Instructions for patient : K eep the area around the vulva dry. Allow the area to have exposure to air. Avoid irritants such as fabric softeners and perfumed soaps.~ Last Documented On 5 11:09AM ; [facility] Advised d/c scented bath pro ducts Last Documented On 5 11:09AM ; [facility] Instructions for patient : p atient is to keep a menstrual diary to help with further evaluation and treatment Last Documented On 3 2:47PM ; [facility] Instructions for patient : B reast Self Exam discussed Last Documented On 3 2:21PM ; [facility] Lose weight Last Documented On 3 2:29PM ; [facility] Education and Decision Aids were provided during visit for: INFORMED CONSENT DISCUSSION: Endometrial biopsy was discussed in detail including discomfort, insufficient specimen with need to repeat test, and rare incidence of uterine perforation. Patient expressed understanding of the above and consented to the procedure Last Documented On 8 2:16PM ; [facility] Smoking cessation advised Last Documented On 8 2:17PM ; [facility] Patient counseling :ER/pain precautions reviewed Last Documented On 8 10:56AM ; [facility] Patient Education: Daily robert cium and vitamin D Last Documented On 8 10:46AM ; [facility] Patient Education: weight be aring exercise Last Documented On 8 10:46AM ; [facility] Smoking cessation advised Last Documented On 8 10:47AM ; [facility] STD screening offered and de clined Last Documented On 7 11:26AM ; [facility] STD screening offered and de clined Last Documented On 6 3:39PM ; [facility] Smoking cessation advised Last Documented On 5 11:05AM ; [facility] Candidiasis Vulvovaginitis I nformation Sheet Given Last Documented On 5 11:09AM ; [facility] New OB form given to patient SAB precautions reviewed and pnv samples given. Advised H1N1 and seasonal flu vaccine Last Documented On 5 10:58AM ; [facility] control consent review ed and signed Last Documented On 3 3:14PM ; [facility] Patient Education: Daily robert cium and vitamin D Last Documented On 3 2:21PM ; [facility] Patient Education: weight be aring exercise Last Documented On 3 2:21PM ; [facility] Smoking cessation advised Last Documented On 2 11:02AM ; [facility] New OB form given to patient SAB precautions reviewed and pnv samples given. Advised H1N1 and seasonal flu vaccine Last Documented On 2 11:01AM ; [facility] Assessments Includes: Assessments for all patient encounters Findings Encounter Date Menorrhagia CONSULTATION with MICHAELA MAC MD 08/26/2018 Last Documented On 8 10:26AM ; [facility] Cyst on the left ovary PELVIC W/TVT with GIULIANO DE LA O [facility]-BC 08/19/2018 Last Documented On 8 3:37PM ; [facility] Menorrhagia ENDOMETRIAL BIOPSY with GIULIANO DE LA O [facility]-BC 07/23/2018 Last Documented On 8 2:35PM ; [facility] Menorrhagia STUDENT TRUCK DRIVER EXAM with GIULIANO DE LA O NP -BC 07/02/2018 Last Documented On 8 11:06AM ; [facility] NORMAL FEMALE EXAM STUDENT TRUCK DRIVER EXAM with GIULIANO Kim [facility]-BC 07/02/2018 Last Documented On 8 11:06AM ; [facility] Routine pelvic exam STUDENT TRUCK DRIVER EXAM with ROSY REYNA MD 06/25/2017 Last Documented On 7 11:38AM ; [facility] Routine pelvic exam STUDENT TRUCK DRIVER EXAM with ROSY REYNA MD 05/17/2016 Last Documented On 6 3:56PM ; [facility] Normal checkup (6 - 42 wk) RETURN OB EX AM with ROSY REYNA MD 12/15/2015 Last Documented On 6 11:41AM ; [facility] Normal checkup (6 - 42 wk) RETU RN OB EXAM with GIULIANO DURON 12/08/2015 Last Documented On 6 3:12PM ; [facility] Normal checkup (6 - 42 wk) RETURN OB EX AM with ROSY REYNA MD 12/01/2015 Last Documented On 5 10:40AM ; [facility] Normal checkup (6 - 42 wk) [Pat ient Encounter] with ROSY REYNA MD 11/21/2015 Last Documented On 5 12:50PM ; [facility] Normal checkup (6 - 42 wk) RETU RN OB EXAM with GIULIANO DURON 11/18/2015 Last Documented On 5 9:13AM ; [facility] Normal checkup (6 - 42 wk) RETURN OB EX AM with ROSY REYNA MD 11/03/2015 Last Documented On 5 11:54AM ; [facility] Normal checkup (6 - 42 wk) [Pat ient Encounter] with ROSY REYNA MD 10/25/2015 Last Documented On 5 9:05AM ; [facility] Normal checkup (6 - 42 wk) RETU RN OB EXAM with GIULIANO DURON 10/20/2015 Last Documented On 5 9:15AM ; [facility] Normal checkup (6 - 42 wk) RETURN OB EX AM with ROSY REYNA MD 10/06/2015 Last Documented On 5 10:26AM ; [facility] Normal checkup (6 - 42 wk) [Pat ient Encounter] with ROSY REYNA MD 09/23/2015 Last Documented On 5 12:44PM ; [facility] Normal checkup (6 - 42 wk) RETU RN OB EXAM with GIULIANO DURON 09/22/2015 Last Documented On 5 10:00AM ; [facility] Normal checkup (6 - 42 wk) RETURN OB EX AM with ROSY REYNA MD 08/30/2015 Last Documented On 5 9:36AM ; [facility] Normal checkup (6 - 42 wk) RETU RN OB EXAM with GIULIANO DE LA O [facility] 08/04/2015 Last Documented On 5 2:48PM ; [facility] Normal checkup (6 - 42 wk) NEW OB EXAM with ROSY REYNA MD 07/07/2015 Last Documented On 5 2:36PM ; [facility] Amenorrhea MISSED MENSES with GIULIANO DE LA O [facility] 06/08/2015 Last Documented On 5 11:29AM ; [facility] Menometrorrhagia RECHECK with GIULIANO DE LA O [facility] 05/20/2013 Last Documented On 3 3:15PM ; [facility] NORMAL FEMALE EXAM STUDENT TRUCK DRIVER EXAM with GIULIANO Kim [facility] 05/06/2013 Last Documented On 3 2:49PM ; [facility] Contraceptive management 1 MONTH CHECK with ROSY REYNA MD 01/29/2013 Last Documented On 3 4:20PM ; [facility] Contraceptive management: In sertion of IUD POST VISIT with ROSY REYNA MD 12/30/2012 Last Documented On 3 2:18PM ; [facility] Normal checkup (6 - 42 wk) [Pat ient Encounter] with ROSY REYNA MD 11/13/2012 Last Documented On 2 5:03PM ; [facility] Normal checkup (6 - 42 wk) RETURN OB EX AM with ROSY REYNA MD 11/11/2012 Last Documented On 2 3:04PM ; [facility] Normal checkup (6 - 42 wk) RETURN OB EX AM with ROSY REYNA MD 11/06/2012 Last Documented On 2 1:13PM ; [facility] Normal checkup (6 - 42 wk) * PHONE CALL with ROSY REYNA MD 10/30/2012 Last Documented On 2 10:14AM ; [facility] Breech presentation of fetus - antepartum condition or prior complicated delivery RETURN OB EXAM with ROSY REYNA MD 10/20/2012 Last Documented On 2 10:50AM ; [facility] Normal checkup (6 - 42 wk) RETURN OB EX AM with ROSY REYNA MD 10/20/2012 Last Documented On 2 10:50AM ; [facility] Normal checkup (6 - 42 wk) [Pat ient Encounter] with ROSY REYNA MD 10/14/2012 Last Documented On 2 12:06PM ; [facility] Normal checkup (6 - 42 wk) RETU RN OB EXAM with GIULIANO RENDON-JANETH 10/13/2012 Last Documented On 2 9:07AM ; [facility] Normal checkup (6 - 42 wk) RETURN OB EX AM with ROSY REYNA MD 10/02/2012 Last Documented On 2 4:17PM ; [facility] Normal checkup (6 - 42 wk) RETU RN OB EXAM with GIULIANO RENDON- 09/17/2012 Last Documented On 2 7:38AM ; [facility] Normal checkup (6 - 42 wk) * PHONE CALL with ROSY REYNA MD 09/08/2012 Last Documented On 2 3:09PM ; [facility] Normal checkup (6 - 42 wk) RETURN OB EX AM with ROSY REYNA MD 09/02/2012 Last Documented On 2 4:41PM ; [facility] Vaginal candidiasis RETURN OB EXAM with ROSY ARMSTRONG MD 09/02/2012 Last Documented On 2 4:41PM ; [facility] Normal checkup (6 - 42 wk) RETU RN OB EXAM with GIULIANO RENDON-JANETH 08/20/2012 Last Documented On 2 9:16AM ; [facility] Normal checkup (6 - 42 wk) RETURN OB EX AM with ROSY REYNA MD 07/24/2012 Last Documented On 2 4:41PM ; [facility] Normal checkup (6 - 42 wk) RETU RN OB EXAM with GIULIANO A JAYLYN [facility] 06/26/2012 Last Documented On 2 1:31PM ; [facility] Normal checkup (6 - 42 wk) NEW OB EXAM with ROSY REYNA MD 06/02/2012 Last Documented On 2 11:38AM ; [facility] Amenorrhea 10 weeks gestatio n by LMP with EDC -28-12 MISSED MENSES with GIULIANO DE LA O [facility] 05/02/2012 Last Documented On 2 11:25AM ; [facility] Instructions Includes: Instructions for all patient encounters Instructions to patient Instructions for patient : p atient is to keep a menstrual diary to help with further evaluation and treatment Last Documented On 8 2:16PM ; [facility] Instructions for patient : B reast Self Exam discussed Last Documented On 8 10:46AM ; [facility] Instructions for patient ER if dizzy, vomiting or light-headed due to heavy bleeding Last Documented On 8 10:56AM ; [facility] Instructions for patient : p atient is to keep a menstrual diary to help with further evaluation and treatment Last Documented On 8 10:56AM ; [facility] Instructions for patient RTO after U/S - follow up and plan of care Last Documented On 8 10:56AM ; [facility] Instructions for patient ER if bleeding through reg. sized pad/tampon < 1 hour Last Documented On 8 10:56AM ; [facility] Instructions for patient : B reast Self Exam discussed Last Documented On 7 11:26AM ; [facility] Instructions for patient : B reast Self Exam discussed Last Documented On 6 3:39PM ; [facility] Instructions for patient : K eep the area around the vulva dry. Allow the area to have exposure to air. Avoid irritants such as fabric softeners and perfumed soaps.~ Last Documented On 5 11:09AM ; [facility] Advised d/c scented bath pro ducts Last Documented On 5 11:09AM ; [facility] Instructions for patient : p atient is to keep a menstrual diary to help with further evaluation and treatment Last Documented On 3 2:47PM ; [facility] Instructions for patient : B reast Self Exam discussed Last Documented On 3 2:21PM ; [facility] Lose weight Last Documented On 3 2:29PM ; [facility] Education and Decision Aids were provided during visit for: INFORMED CONSENT DISCUSSION: Endometrial biopsy was discussed in detail including discomfort, insufficient specimen with need to repeat test, and rare incidence of uterine perforation. Patient expressed understanding of the above and consented to the procedure Last Documented On 8 2:16PM ; [facility] Smoking cessation advised Last Documented On 8 2:17PM ; [facility] Patient counseling :ER/pain precautions reviewed Last Documented On 8 10:56AM ; [facility] Patient Education: Daily robert cium and vitamin D Last Documented On 8 10:46AM ; [facility] Patient Education: weight be aring exercise Last Documented On 8 10:46AM ; [facility] Smoking cessation advised Last Documented On 8 10:47AM ; [facility] STD screening offered and de clined Last Documented On 7 11:26AM ; [facility] STD screening offered and de clined Last Documented On 6 3:39PM ; [facility] Smoking cessation advised Last Documented On 5 11:05AM ; [facility] Candidiasis Vulvovaginitis I nformation Sheet Given Last Documented On 5 11:09AM ; [facility] New OB form given to patient SAB precautions reviewed and pnv samples given. Advised H1N1 and seasonal flu vaccine Last Documented On 5 10:58AM ; [facility] control consent review ed and signed Last Documented On 3 3:14PM ; [facility] Patient Education: Daily robert cium and vitamin D Last Documented On 3 2:21PM ; [facility] Patient Education: weight be aring exercise Last Documented On 3 2:21PM ; [facility] Smoking cessation advised Last Documented On 2 11:02AM ; [facility] New OB form given to patient SAB precautions reviewed and pnv samples given. Advised H1N1 and seasonal flu vaccine Last Documented On 2 11:01AM ; [facility] Medical Equipment - Implanted Devices Includes: Current and historical Devices No Medical Equipment Recorded Medications Includes: Current and historical Medications Current Medications (continue as prescribed) Multiple Vitamins/Womens Oral Tablet 06/25/2017 Prov ider: Diagnosis: Last Documented On 7 11:24AM By CRUZ LEAHY ; [facility] PX Iron 200 (65 Fe) MG Tablet 06/08/2015 Provider: Diagnosis: Last Documented On 5 11:07AM By CRUZ LEAHY ; [facility] Past Medications on file Motrin IB 200 MG Tablet 01/02/2016 - 06/25/2017 Provid er: Diagnosis: Last Documented On 7 11:24AM By CRUZ LEAHY ; [facility] Terazol 7 0.4 % Cream 06/16/2015 - 07/07/2015 Provider: GIULIANO DE LA O NP-BC Diagnosis: CANDIDAL VULVOVA GINITIS as directed - insert pv one applicator full q hs x 7 nocs Last Documented On 5 12:57PM By MARQUITA LEAHY ; [facility] CVS 28-0.8 MG Tablet 06/08/2015 - 06/25/2017 Provider: Diagnosis: Last Documented On 7 11:24AM By CRUZ LEAHY ; [facility] gynezole 1 2 % Cream 06/08/2015 - 07/07/2015 Provider: GIULIANO DE LA O NP-BC Diagnosis: CANDIDAL VULVOVA GINITIS as directed - insert one applicator full pv Last Documented On 5 12:57PM By MARQUITA LEAHY ; [facility] Terazol 7 0.4 % Cream 05/20/2015 - 06/19/2015 Provider: GIULIANO DE LA O WHNP-BC Diagnosis: CANDIDAL VULVOVA GINITIS as directed - insert pv q hs x 7 nights (one applicator full) Last Documented On 5 9:25AM By GIULIANO POOLE ; [facility] Mircette 0.15-0.02/0.01 MG (21/04) OR TABS 05/20/2013 - 05/15/2014 Provider: GIULIANO DURON Diagnosis: CONTRACEPT SURVE ILL NOS Last Documented On 3 3:14PM By GIULIANO DURON ; [facility] Mirena (52 MG) 20 MCG/24HR IU IUD 12/30/2012 - 013 Provider: Diagnosis: Inserted 12-30- Last Documented On 3 3:13PM By GIULIANO DURON ; [facility] Reglan 10 MG OR TABS 12/30/2012 - 03/30/2013 Provider: ROSY REYNA MD Diagnosis: Last Documented On 12/30/2012 2:57PM By ROSY REYNA MD ; [facility] Ferrous Sulfate 325 (65 Fe) MG OR TABS 12/05/2012 - Provider: Diagnosis: Last Documented On 05/06/2013 2:32PM By CRUZ LEAHY ; [facility] Ibuprofen 600 MG OR TABS 12/05/2012 - 05/06/2013 Provi maria esther: Diagnosis: Last Documented On 05/06/2013 2:31PM By CRUZ LEAHY ; [facility] 19 OR TABS 12/05/2012 - 05/06/2013 Provider: ROSY ERYNA MD Diagnosis: Last Documented On 05/06/2013 2:31PM By CRUZ LEAHY ; [facility] NIFEdipine 20 MG OR CAPS 11/06/2012 - 12/05/2012 Provi maria esther: Diagnosis: Last Documented On 12/05/2012 11:32AM By MATIAS RICHARDSON ; [facility] Diflucan 150 MG OR TABS 09/02/2012 - 09/03/2012 Provid er: ROSY REYNA MD Diagnosis: Last Documented On 09/02/2012 4:36PM By ROSY REYNA MD ; [facility] 19 OR TABS 09/02/2012 - 12/05/2012 Provider: ROSY REYNA MD Diagnosis: Last Documented On 12/05/2012 11:53AM By ROSY REYNA MD ; [facility] 19 OR TABS 05/02/2012 - 09/02/2012 Provider: GIULIANO DE LA O [facility]-BC Diagnosis: Last Documented On 09/02/2012 4:35PM By ROSY REYNA MD ; [facility] Medications Administered Includes: Administered Medications in patient's chart Medications Administered Diagnosis Date Pro vider Fluzone Preservative Free 0.5 ML IM EDUARD Encounter for immunization 09/22/2015 GIULIANO Nir DE LA O WHNP-BC Last Documented On 5 8:41AM By CRUZ LEAHY ; [facility] Fluzone Preservative Free IM SUSP VACCIN FOR INFLUENZA 09/02/2012 ROSY REYNA MD Vaccine administered intradermal to pts R upper, outer arm Last Documented On 2 4:37PM By MATIAS RICHARDSON ; [facility] Results Includes: Results from 01/27/2024 through 01/27/2025 No Results Recorded For Specified Dates History of Present Illness History of Present Illness not supported for this document type No History of Present Illness Recorded Social History Description Last Updated Smoking status : Current nabila ryday smoker a half to one ppd; smoking since 19 y old: NTQS! 08/26/2018 Last Documented On 8 10:26AM ; [facility] Exercising regularly takes walks 018 Last Documented On 8 10:26AM ; [facility] Marital history 08/26/2018 Last Documented On 8 10:26AM ; [facility] Cigarette smoking 07/23/2018 Last Documented On 8 2:35PM ; [facility] In monogamous relationship 07/23/2018 Last Documented On 8 2:35PM ; [facility] Not using alcohol 07/23/2018 Last Documented On 8 2:35PM ; [facility] Not using drugs 07/23/2018 Last Documented On 8 2:35PM ; [facility] Sexually active with 1 partners in the l ast year 07/23/2018 Last Documented On 8 2:35PM ; [facility] Social history unchanged 07/23/2018 Last Documented On 8 2:35PM ; [facility] Procedures and Surgical History Surgical History Last Updated History of tubal ligation at time of las t section 08/26/2018 Last Documented On 8 10:26AM ; [facility] Requested item <0> not found 07/23/2018 Last Documented On 8 2:35PM ; [facility] Surgical / procedural history wisdom elie th ~2 c-sections 07/23/2018 Last Documented On 8 2:35PM ; [facility] Medical History Includes: Medical History in patient's chart Description Last Updated section x 2 [facility] 08/26/2018 Last Documented On 8 10:26AM ; [facility] LMP: 08/12/2018 08/26/2018 Last Documented On 8 10:26AM ; [facility] Status post tubal ligation 12/19/2015 [facility] 08/26/2018 Last Documented On 8 10:26AM ; [facility] Last pap smear date 05/07/2016 08/26/2018 Last Documented On 8 10:26AM ; [facility] History of Pap smear done 05/17/201607/03 Last Documented On 8 2:35PM ; [facility] Result: normal 07/23/2018 Last Documented On 8 2:35PM ; [facility] Sexually active 07/23/2018 Last Documented On 8 2:35PM ; [facility] 2 07/23/2018 Last Documented On 8 2:35PM ; [facility] Para 2 07/23/2018 Last Documented On 8 2:35PM ; [facility] Family History Includes: Family History in patient's chart Description Last Updated Family history unchanged 07/02/2018 Last Documented On 8 11:06AM ; [facility] Maternal grandfather's history of family history of heart disease pgf,mgf 07/02/2018 Last Documented On 8 11:06AM ; [facility] Maternal grandmother's history of malign ant female breast neoplasm mgm 07/02/2018 Last Documented On 8 11:06AM ; [facility] Maternal grandmother's histo ry of malignant neoplasm of large intestine mgm 07/02/2018 Last Documented On 8 11:06AM ; [facility] Paternal aunt's history of malignant soumya plasm of the ovary paternal aunt 07/02/2018 Last Documented On 8 11:06AM ; [facility] Paternal history of hypertension father 07/02/2018 Last Documented On 8 11:06AM ; [facility] Sororal history of diabetes mellitus sis ter and father 07/02/2018 Last Documented On 8 11:06AM ; [facility] Spouse name: pamela 05/06/2013 Last Documented On 3 2:49PM ; [facility] Family history of diabetes mellitus sist er and father 05/06/2013 Last Documented On 3 2:49PM ; [facility] Family history of heart disease pgf,mgf 05/06/2013 Last Documented On 3 2:49PM ; [facility] Family history of hypertension father Last Documented On 3 2:49PM ; [facility] Family history of malignant female breas t neoplasm mgm 05/06/2013 Last Documented On 3 2:49PM ; [facility] Family history of malignant neoplasm of the large intestine mg 05/06/2013 Last Documented On 3 2:49PM ; [facility] Family history of malignant neoplasm of the ovary paternal aunt 05/06/2013 Last Documented On 3 2:49PM ; [facility] Review of Systems Review of Systems not supported for this document type No Review of Systems Recorded Mental Status No Mental Status Recorded Functional Status No Functional Status Recorded Physical Exam Physical Exam not supported for this document type No Physical Exam Recorded Immunizations Includes: Immunizations in patient's chart Vaccine Dose # Date Site Reaction(s) Status Source Influenza (Quadrivalent)36 mo.& older PF 0.5ml (SD) 1 09/02/2012 Right Arm Complete (Administered) [facility] Last Documented On 2 4:36PM ; [facility] Influenza (Quadrivalent)36 mo.& older PF 0.5ml (SD) 2 09/22/2015 Left Arm Complete (Administered) [facility] Last Documented On 5 8:40AM ; [facility] Allergies Includes: Active, inactive, and resolved Allergies No Known Allergies Clinical Notes Includes: Signed Clinical Notes starting from 12/21/2022 No Clinical Notes Recorded
== END 2025-01-27 09:28 | disposition home or self-care (01) ==
LOC: CHSIMG 09:29
PROVIDERS: PCP Physician Assistant; Visit Provider Nurse Practitioner Women's Health
DX: Z12.31 Encounter for screening mammogram for malignant neoplasm of breast (principal)
CPT/HCPCS: 77063; 77067